=== PATIENT | male | born 1970 | race Caucasian/White ===

== ENCOUNTER 2016-06-17 08:37 | Emergency (ER) ==
--- NOTE | 2016-06-17 10:11 | PROVIDER DOCUMENTATION ---
HPI-Echevarria & Inhalation Injury - General Chief Complaint: Work Related Injury Stated Complaint: BURN ON WRIST Time Seen by Provider: 06/17/16 09:45 Source: patient Allergies/Adverse Reactions: Patient Allergies Allergy/AdvReac Type Severity Reaction Status Date / Time No Known Allergies Allergy Verified 09/16/15 22:42 Home Medications: Home Medication List Medication Instructions Recorded Confirmed Last Taken Type Ondansetron [Zofran] 4 mg PO Q6H PRN PRN #20 tablet 09/17/15 Unknown Rx Cephalexin [Keflex] 500 mg PO Q6HR #28 capsule 06/17/16 Unknown Rx Silver Sulfadiazine [Silvadene] 20 gm TP DAILY #1 cream..g. 06/17/16 Unknown Rx - History of Present Illness-Echevarria/Smoke Nature of Presenting Problem: Pt presents today c complaints of a mild chemical burn ([place]) on his R wrist that occurred 4 days ago. <1% TBSA. He states that there really isn't much pain but he is concerned about infection. No other issues or complaints. Onset/Duration: 4 days ago Locality of Occurance: Work Context: reports: chemical burn Location: reports: hands (wrist) Severity: mild Quality: painful (minimal) Current Symptoms: reports: none Similar Symptoms Previously?: Yes Recently seen or treated by another doctor?: No Review of Systems - Adult - REVIEW OF SYSTEMS - ADULT Constitutional: reports: no symptoms reported. denies: chills, fatique Eyes: reports: no symptoms reported. denies: discharge, dry eyes Ears, Nose, Mouth & Throat: reports: no symptoms reported. denies: ear discharge, ear pain Cardiovascular: reports: no symptoms reported. denies: chest pain, edema Respiratory: reports: no symptoms reported. denies: chronic cough, cough Gastrointestinal: reports: no symptoms reported. denies: abdominal pain, hematemesis Genitourinary: reports: no symptoms reported. denies: dysuria, discharge Musculoskeletal: reports: no symptoms reported. denies: bone pain, back pain Integumentary: reports: see HPI. denies: mole changes, nail changes Neurological: reports: no symptoms reported. denies: ataxia, dizziness/vertigo Psychiatric: reports: no symptoms reported. denies: anxiety, anti-depressant use Endocrine: reports: no symptoms reported Hematologic/Lymphatic: reports: no symptoms reported Allergic/Immunologic: reports: no symptoms reported All Other Systems: Reviewed and Negative Past History - Adult - PAST MEDICAL HISTORY-ADULT Review of Records: reports: Old Records Reviewed, Nursing Assessment Review, Medications Reviewed, Social history reviewed & non-contributory. Major Childhood Illnesses: reports: denies history Cardiovascular: reports: denies history Respiratory: reports: denies history Gastrointestinal: reports: denies history Obstetrical/Gynecological: reports: denies history Genitourinary: reports: denies history Musculoskeletal: reports: denies history Neurological: reports: denies history Endocrine/Immune: reports: denies history Other Conditions: reports: skin disorder (shingles) Additional History: Herniated discs - PRIOR SURGERIES/PROCEDURES Surgical/Procedure History: reports: none - PRIOR HOSPITALIZATIONS Prior Hospitalizations: reports: none - IMMUNIZATION STATUS Childhood Immunizations: See Nurse Assessment Flu Vaccine: See Nurse Assessment - FAMILY HISTORY Family History: reviewed, not pertinent Physical Exam-General - PHYSICAL EXAM-ADULT Initial Vital Signs Reviewed: Yes - CONSTITUTIONAL General Appearance: appears well, alert, no apparent distress - EYES Eyes: PERRL/EOMI, pink conjunctivae - HEAD, EARS, NOSE, MOUTH & THROAT HENMT: normocephalic/atraumatic, moist mucous membranes, normal ENT inspection - NECK Neck: non-tender, full range of motion, supple, normal inspection - RESPIRATORY Respiratory: chest non-tender, lungs clear, normal breath sounds, no pleuratic chest pain, no respiratory distress, no accessory muscle use - CARDIOVASCULAR Cardiovascular: normal peripheral pulses, regular rate, rhythm - GASTROINTESTINAL (ABDOMEN) Abdominal Exam: normal bowel sounds, non tender, soft - MUSCULOSKELETAL Back Exam: normal inspection, no CVA tenderness, no vertebral tenderness Extremity: normal range of motion, normal gait, other (see hpi) - SKIN Integumentary: normal turgor, warm/dry, other (mild chemical burn to the R wrist ; <1% TBSA; no signs of infection) - NEUROLOGIC Neurologic: grossly normal, no motor/sensory deficits - PSYCHIATRIC Psych/Mental Status: normal mood/affect, normal thought content, normal thought process, oriented x 3 Progress - PLAN OF CARE/RESULTS Progress/Plan/Lab Results: Vital Signs Temp Pulse Resp BP Pulse Ox 06/17/16 08:45 98.0 F 77 18 157/86 100 No Known Allergies Allergy (Verified 09/16/15 22:42) Ondansetron [Zofran] 4 mg PO Q6H PRN PRN #20 tablet 09/17/15 Departure - Departure Time of Disposition Order: 10:10 DIAGNOSIS: Chemical burn of right wrist Qualifiers: Encounter type: initial encounter Corrosion degree: first degree Qualified Code (s): T23.571A - Corrosion of first degree of right wrist, initial encounter Disposition: HOME 01 Certified Medical Emergency: Urgent Condition: Good Additional Instructions: Take medication as prescribed. Follow up with a bag grader as needed. ED Follow Up Instructions: You have been treated by a care provider in the Emergency Department. These instructions are being provided to you so you can have an understanding of how to care for yourself upon discharge. Upon discharge from the Emergency Department, you are responsible for making arrangements for follow-up care by a physician of your choice. Take all prescribed medications as directed. Return to the Emergency Department immediately for any new or worsening symptoms. You may call the Physician Referral phone number at [phone] to obtain a list of Physicians who are taking new patients. Prescriptions: Cephalexin [Keflex] 500 mg PO Q6HR #28 capsule Silver Sulfadiazine [Silvadene] 20 gm TP DAILY #1 cream..g. Referrals: None,PCP [Primary Care Provider] - Angle Marie MD [STAFF PHYSICIAN] - Attestation - Physician/ KENDRICK Attestation Patient care was provided by Advanced Practice Provider:: Yes Advanced Practice Provider:: Ja Galvan Advanced Practice Provider documentation review:: The Mid-level provider documentation, treatment plan and medical decision making was reviewed by the physician who agrees with all treatment and medical decision making by the P.
[2016-06-17 11:20] VITALS: BP 150/79
== END 2016-06-17 11:19 | disposition home or self-care (01) ==
LOC: ED 08:37
DX: T23.571A Corrosion of first degree of right wrist, initial encounter (principal); T54.3X1A Toxic effect of corrosive alkalis and alkali-like substances, accidental (unintentional), initial encounter; B02.9 Zoster without complications
CPT/HCPCS: 99282